=== PATIENT | male | born 1950 | race Caucasian/White ===

== ENCOUNTER 2024-12-30 20:29 | Emergency (ER) | payer OTHER, SELFPAY ==
--- NOTE | ~2024-12-30 | XR_ITS ---
CLINICAL HISTORY: R arm pain from elbow to hand RIGHT FOREARM X-RAYS COMPARISON: None. FINDINGS: A total of 2 views of the right forearm were obtained. Exam is limited due to patient positioning. No evidence of an acute fracture or dislocation within the right forearm. Elbow is difficult to accurately assess on the lateral view due to rotation. Vascular calcifications are present. No metallic foreign body. IMPRESSION: 1. No acute disease. This document has been electronically signed by: Partha eHrrera M.D. on 12/30/2024 23:02:07
[2024-12-30 21:02] VITALS: BP 148/94; PULSE 67; RESP 16; TEMP 36.1; O2SAT 96; BMI 41.6
[2024-12-30 22:29] LABS: MANUAL DIFF FLAG NO
[2024-12-30 22:39] LABS: Basophils Absolute Auto 0.1 X10*3/uL (0.0-0.2); Basophils Percent Auto 0.9 % (0-2); Eosinophils Absolute Auto 0.3 X10*3/uL (0.0-0.4); Eosinophils Percent Auto 3.4 % (0-4); Hematocrit 37.2 % (42.0-52.0); Hemoglobin 12.3 g/dl (14.0-18.0); Imm Gran Abs Auto 0.04 X10*3/uL (0.00-0.03); Imm Gran Pct Auto 0.4 % (0.0-0.4); Lymphocytes Absolute Auto 3.2 X10*3/uL (1.2-4.9); Lymphocytes Percent Auto 32.1 % (20-40); Mean Corpuscular HGB Conc 33.1 g/dl (31.0-36.0); Mean Corpuscular Hemoglobin 29.7 pg (27.0-33.0); Mean Corpuscular Volume 89.9 fL (80.0-98.0); Mean Platelet Volume 10.6 fL (9.4-12.4); Monocytes Absolute Auto 0.7 X10*3/uL (0.1-1.2); Monocytes Percent Auto 7.4 % (2-11); Neutrophils Absolute Auto 5.5 x10*3/uL (2.0-8.3); Neutrophils Percent Auto 55.8 % (45-73); Platelet Count 262 X10*3/uL (160-400); Red Blood Count 4.14 X10*6/uL (4.60-5.80); Red Cell Distribution Width 13.2 % (11.0-16.0); White Blood Count 9.9 X10*3/uL (4.8-10.8)
[2024-12-30 22:50] LABS: Alanine Aminotransferase 10 U/L (0-40); Albumin Level 4.2 g/dL (3.5-5.0); Alkaline Phosphatase 70 U/L (39-117); Anion Gap 13 (12-20); Aspartate Amino Transferase 16 U/L (5-37); Bilirubin Total 0.2 mg/dL (0.0-1.0); Blood Urea Nitrogen 18 mg/dL (9-16); Calcium 9.5 mg/dL (8.4-10.2); Carbon Dioxide 24 mmol/L (22-29); Chloride 106 mmol/L (96-108); Creatinine Clr Calc Pharmacy 63.6; Estimated Glomerular Filt Rate 58; Glucose Random 394 mg/dL (60-115); Potassium 4.4 mmol/L (3.3-5.1); Sodium 139 mmol/L (135-145); Total Protein 7.1 g/dL (6.5-8.0)
[2024-12-30 23:37] LABS: Prothrombin Time 11.4 SEC (10.9-12.4)
[2024-12-31 03:15] VITALS: BP 141/64; PULSE 68; RESP 16; TEMP 36.1; O2SAT 97
[2024-12-31] MEDS: methocarbamoL 750 MG TABLET PO (03:18)
[2024-12-31] MEDS: Ketorolac Tromethamine 15 MG/ML VIAL IM (03:18)
--- NOTE | 2024-12-31 03:43 | ED_ITS ---
HPI - Extremity Problem General Chief complaint: Extremity Injury, Upper Stated complaint: R elbow swelling, unable to move Time Seen by Provider: 12/31/24 02:58 Source: patient Limitations: no limitations History of Present Illness ED Provider: Rukhsana Bhatti PA-C HPI Narrative: 74-year-old female presents with right arm pain over the past 4 hours. Pain from the elbow to the hand, she has a reduced director of neurology strength secondary to her discomfort. Denies fall or known overuse injury. Denies redness swelling or warmth of the joint no fevers. Related Data Previous Rx's ?Medication ?Instructions ?Recorded meloxicam 15 mg tablet 15 mg PO DAILY PRN pain #7 tabs 12/31/24 methocarbamol 750 mg tablet 750 mg PO Q8H PRN pain, moderate 12/31/24 #10 tabs Allergies Allergy/AdvReac Type Severity Reaction Status Date / Time meperidine [From DEMEROL] Allergy Severe VOMITED Verified 12/30/24 21:04 BLOOD Review of Systems 2 Review of Systems: Yes all other systems are reviewed and are negative Constitutional: Constitutional: Denies fatigue and Denies fever(s) ENT: Denies neck pain Musculoskeletal: Musculoskeletal: Reports arthralgias, Denies joint swelling, Denies muscle weakness, Denies neck pain and Denies tingling Neurologic: Denies tingling Endocrine: Endocrine: Denies fatigue PMFSH Past Medical History Attestation statement: The following information was validated with the patient. Physical Exam 2 Vital Signs: Vital Signs: Last Vital Signs Temp 97.0 F 12/31/24 03:56 Pulse 68 12/31/24 03:56 Resp 16 12/31/24 03:56 BP 141/64 H 12/31/24 03:56 Pulse Ox 97 12/31/24 03:56 O2 Del Method Room Air 12/31/24 03:56 BMI result Body Mass Index 41.6 Const: Other: Alert well-appearing Orientation/consciousness: patient oriented x3 Resp: Effort & Inspection: normal respiratory effort Cardio: Other: Normal peripheral perfusion Skin: Other: Warm dry no rash Neuro: General: patient oriented x3, gait normal, no focal motor deficits and CN's II-XI intact bilaterally Extrem: Other: Pain elicited lateral elbow with resisted pronation, no overlying erythema or warmth of the joint she can flex and extend from the elbow she can also raise the arm above her head she can flex and extend from the wrist Psych: Other: Cooperative Medications Administered Discontinued Medications Generic Name Dose Route Start Last Admin Trade Name Luis PRN Reason Stop Dose Admin Ketorolac Tromethamine 15 mg 12/31/24 03:10 12/31/24 03:18 Ketorolac Tromethamine 15 Mg/Ml Vial IM 12/31/24 03:11 15 mg ONCE ONE Administration Methocarbamol 750 mg 12/31/24 03:10 12/31/24 03:18 Methocarbamol 750 Mg Tablet PO 12/31/24 03:11 750 mg ONCE ONE Administration Medical Decision Making Medical Decision Making [facility] Narrative: 74-year-old female presents with right arm pain over the past 4 hours. Pain from the elbow to the hand, she has a reduced director of neurology strength secondary to her discomfort. Denies fall or known overuse injury. Denies redness swelling or warmth of the joint no fevers. Problem: Age History: Per patient I have considered the following differential diagnoses: Fracture, dislocation, arthritis, sprain, septic joint, tennis elbow Plan: Screening labs including an x-ray obtained from triage, everything is unremarkable. Her exam was consistent with tennis elbow. We will send with home care instructions. There were no exam findings that are consistent with a septic joint. I have independently reviewed the following tests: Labs: No leukocytosis, not anemic, no electrolyte abnormalities noted X-ray right forearm:COMPARISON: None. FINDINGS: A total of 2 views of the right forearm were obtained. Exam is limited due to patient positioning. No evidence of an acute fracture or dislocation within the right forearm. Elbow is difficult to accurately assess on the lateral view due to rotation. Vascular calcifications are present. No metallic foreign body. IMPRESSION: 1. No acute disease. Lab Data 12/30/24 22:26 12/30/24 22:26 Labs: Lab Results 12/30/24 Range/Units 22:26 WBC 9.9 (4.8-10.8) X10*3/uL RBC 4.14 L (4.60-5.80) X10*6/uL Hgb 12.3 L (14.0-18.0) g/dl Hct 37.2 L (42.0-52.0) % MCV 89.9 (80.0-98.0) fL MCH 29.7 (27.0-33.0) pg MCHC 33.1 (31.0-36.0) g/dl RDW 13.2 (11.0-16.0) % Plt Count 262 (160-400) X10*3/uL MPV 10.6 (9.4-12.4) fL Immature Gran % (Auto) 0.4 (0.0-0.4) % Neut % (Auto) 55.8 (45-73) % Lymph % (Auto) 32.1 (20-40) % [place] % (Auto) 7.4 (2-11) % Eos % (Auto) 3.4 (0-4) % Baso % (Auto) 0.9 (0-2) % Lymph # (Auto) 3.2 (1.2-4.9) X10*3/uL [place] # (Auto) 0.7 (0.1-1.2) X10*3/uL Eos # (Auto) 0.3 (0.0-0.4) X10*3/uL Baso # (Auto) 0.1 (0.0-0.2) X10*3/uL Abs Immat Gran (auto) 0.04 H (0.00-0.03) X10*3/uL Absolute Neuts (auto) 5.5 (2.0-8.3) x10*3/uL Absolute Nucleated RBC 0.000 (0.0-0.012) X10*3/uL Nucleated RBC % (auto) 0.0 (0.0-0.2) /100WBC PT 11.4 (10.9-12.4) SEC INR 1.0 (0.9-1.1) Sodium 139 (135-145) mmol/L Potassium 4.4 (3.3-5.1) mmol/L Chloride 106 (96-108) mmol/L Carbon Dioxide 24 (22-29) mmol/L Anion Gap 13 (12-20) BUN 18 H (9-16) mg/dL Creatinine 1.22 (0.5-1.4) mg/dL Estim Creat Clear Calc 63.6 Estimated GFR 58 Random Glucose 394 H* (60-115) mg/dL Calcium 9.5 (8.4-10.2) mg/dL Total Bilirubin 0.2 (0.0-1.0) mg/dL AST 16 (5-37) U/L ALT 10 (0-40) U/L Alkaline Phosphatase 70 (39-117) U/L Total Protein 7.1 (6.5-8.0) g/dL Albumin 4.2 (3.5-5.0) g/dL Discharge Plan Discharge Clinical Impression: Epicondylitis, lateral, right Patient Disposition: Home, Self-Care Instructions: Tennis Elbow (ED) Additional Instructions: Your screening labs were normal, the x-ray of the elbow was negative for fracture or dislocation. Your exam was consistent with tennis elbow. See home care instructions. Use the sling as needed to support the elbow. Take the meloxicam as directed this is an anti-inflammatory take it with food. Take the methocarbamol as needed for further pain. This is a muscle relaxant it will cause drowsiness do not drive or operate machinery while taking the medication. I am providing with a contact for our orthopedic service, you may benefit from cortisone joint injection. Prescriptions: New meloxicam 15 mg tablet 15 mg PO DAILY PRN (Reason: pain) Qty: 7 0RF methocarbamol 750 mg tablet 750 mg PO Q8H PRN (Reason: pain, moderate) Qty: 10 0RF Referrals: Radames Rodriguez MD [Physician] - (tennis elbow) Interventions: ED Discharge Assessment Last Done: 12/31/24 03:56 Discharge Date/Time: 12/31/24 03:58 Print Language: Bruneian
[2024-12-31 03:56] VITALS: BP 141/64; PULSE 68; RESP 16; TEMP 36.1; O2SAT 97
== END 2024-12-31 03:58 | disposition home or self-care (01) ==
PROVIDERS: Emergency Provider Emergency Medicine Emergency Medical Services; PCP Physician Assistant Medical
DX: M77.11 Lateral epicondylitis, right elbow (principal); M79.601 Pain in right arm
CPT/HCPCS: 36415; 73090; 80053; 85025; 85610; 96372; 99284; J1885

== ENCOUNTER → 2024-12-30 21:20 | Outpatient (BNV) | payer OTHER, SELFPAY | PROVIDERS: PCP Physician Assistant Medical; Visit Provider Radiology Diagnostic Radiology | DX: M79.601 Pain in right arm (principal) | CPT/HCPCS: 73090 ==

== ENCOUNTER 2025-05-29 11:45 | Emergency (ER) | payer OTHER, SELFPAY ==
--- NOTE | ~2025-05-29 | XR_ITS ---
EXAMINATION: XR LUMBOSACRAL SPINE CLINICAL INFORMATION: lumbar back pain COMPARISON: None available. TECHNIQUE: Three views of the lumbosacral spine. FINDINGS: There is no significant scoliosis. There is a normal lordosis. Alignment appears normal without subluxation. There is no fracture, compression deformity, or suspicious bone lesion. Moderate disc degeneration identified throughout, with prominent ventral and lateral disc osteophytes at L1-2, L2-3, and L3-4. There is normal facet alignment. There are mild to moderate multilevel degenerative facet changes. The sacrum appears intact. Mild to moderate degenerative arthritis of the SI joints. There are diffuse vascular calcifications. There are cholecystectomy clips present. XR/XR lumbar spine 2-3V IMPRESSION: 1. No acute bony or soft tissue abnormality. 2. Moderate lumbar spondylosis. Electronically signed by: Lyle Hussein MD 05/29/2025 02:54 PM EDT
[2025-05-29 11:50] VITALS: BP 141/70; PULSE 74; RESP 16; TEMP 36.1; O2SAT 98; BMI 39.7
--- NOTE | 2025-05-29 12:57 | ED_ITS ---
HPI - General Adult General Chief complaint: Back Pain/Injury Stated complaint: LOWER BACK PAIN Time Seen by Provider: 05/29/25 11:54 Source: patient, RN notes reviewed and old records reviewed Mode of arrival: ambulatory Limitations: no limitations History of Present Illness ED Provider: SAJAN Padilla HPI narrative: 74-year-old male with medical history of T2DM on insulin presents to ED due to 10 days of lumbar back pain radiating down posterior R thigh. Patient states he was sitting down to put his pants on when he bent forward and felt a spasm of the musculature of his lower back. He had been taking Yaw's OTC medication which had been providing moderate relief. Patient states he woke up this morning and went to put his shoes on and noticed worsening pain in the lumbar back now. Patient stated he was concerned while driving at work because his R leg started to go numb, however, this went away after he got out of the car. Denies IVDU, saddle paresthesias, bowel or bladder incontinence, fevers, chest pain, SOB MD complaint: lumbar back pain Related Data Previous Rx's ?Medication ?Instructions ?Recorded meloxicam 15 mg tablet 15 mg PO DAILY PRN pain #7 t abs 12/31/24 methocarbamol 750 mg tablet 750 mg PO Q8H PRN pain, mo derate 12/31/24 #10 tabs cyclobenzaprine 5 mg tablet 5 mg PO BID PRN muscle spa sm #10 05/29/25 tabs prednisone 20 mg tablet 20 mg PO BID 5 days #10 tabs 05/29/25 Allergies Allergy/AdvReac Type Severity Reaction Status Date / Time meperidine (From DEMEROL) Allergy Severe VOMITED Verified 05/29/25 11:55 BLOOD Review of Systems 2 Review of Systems: CONST: Negative for fever, body aches and chills. HENT: Negative for neck pain/stiffness, headache, congestion, sore throat, swelling. EYES: Negative for discharge/pain or vision changes. RESP: Negative for cough/hemoptysis and shortness of breath. CV: Negative chest pain, difficulty breathing, palpitations. ABD: Negative pain, nausea, vomiting. : Negative increase frequency, dysuria, blood in urine or stool. MUSC: Negative for muscle aches, edema. POS lumbar back pain SKIN: Negative rash, lesions/sores. NEURO: Negative headache, dizziness, weakness. PMFSH Social History Social History Advance Directives: No Advance Directives Information Provided: No Physical Exam ED Vital Signs: Vital Signs - 24 hr 05/29/25 11:50 Temperature 97 F Pulse Rate 74 Respiratory Rate 16 Blood Pressure 141/70 H Pulse Oximetry 98 Oxygen Delivery Method Room Air BMI result Body Mass Index 39.7 GENERAL APPEARANCE: ?AxOx4, generally well-appearing, no acute distress. HEENT: ?NC, AT. MMM. EOMI, clear conjunctiva, oropharynx clear. NECK: ?Supple without lymphadenopathy.? No stiffness or restricted ROM. HEART:? Normal rate and regular rhythm, normal S1/S2, no m/r/g LUNGS:? CTAB, moving air well. No crackles or wheezes are heard. ABDOMEN: ?Soft, nontender, nondistended BACK: No CVAT, no obvious deformity. EXTREMITIES: ?Without cyanosis, clubbing or edema. B/L lumbar paraspinal TTP without midline spinal tenderness, reduced ROM due to pain, Patient unable to take a step due to pain. NEUROLOGICAL: ?Grossly nonfocal. Alert and oriented, moving all 4 extremities. Observed to ambulate with normal gait. Skin: ?Warm and dry without any rash. Medications Administered Discontinued Medications Generic Name Dose Route Start Last Admin Trade Name Freq PRN Reason Stop Dose Admin Acetaminophen 975 mg 05/29/25 13:56 05/29/25 14:08 Acetaminophen 325 Mg Tablet PO 05/29/25 13:57 975 mg ONCE ONE Administration Diazepam 5 mg 05/29/25 13:55 05/29/25 14:11 Diazepam 10 Mg/2 Ml Cartridge IM 05/29/25 13:56 5 mg STAT STA Administration Ketorolac Tromethamine 30 mg 05/29/25 13:56 05/29/25 14:09 Ketorolac Tromethamine 30 Mg/Ml Vial IM 05/29/25 13:57 30 mg ONCE ONE Administration Medical Decision Making Medical Decision Making MDM Narrative: 74-year-old male with medical history of T2DM on insulin presents to ED due to 10 days of lumbar back pain radiating down posterior R thigh. Patient states he was sitting down to put his pants on when he bent forward and felt a spasm of the musculature of his lower back. He had been taking Yaw's OTC medication which had been providing moderate relief. Patient states he woke up this morning and went to put his shoes on and noticed worsening pain in the lumbar back now. Patient stated he was concerned while driving at work because his R leg started to go numb, however, this went away after he got out of the car. Denies IVDU, saddle paresthesias, bowel or bladder incontinence VS on initial observation-BP 141/70, pulse rate is 74, respiratory rate of 16, afebrile with oral temp of 97?, O2 saturation 98% on room air. On physical exam B/L lumbar paraspinal TTP without midline spinal tenderness, reduced ROM due to pain, Patient unable to take a step due to pain. Plan: labs, XR lumbar spine - Medicated with 30mg IM toradol, 5mg IV valium, 975mg PO Tylenol Labs without leukocytosis/leukopenia, stable normocytic anemia with hemoglobin of 12.6, hematocrit of 38.4, hypomagnesemia of 1.3, hyperkalemia 5.2, random serum glucose of 153 - repleating magnesium with 2g IV mag, no indication for lokelma as hyperkalemia is very mild. 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 Patient is afebrile, without leukocytosis, no history of IVDU, no saddle paresthesias, bowel/bladder incontinence, no cancer history, less likely cauda equina, discitis, SEA. Pain has improved moderately after being medicated with 30mg IM toradol, 5mg IM valium, 975 po tylenol. Patients symptoms most likely due to lumbar radiculopathy due to degenerative changes seen of lumbar spine and of B/L SI joints. Patient will be discharged with 5 day course of flexeril, 5 days of 40mg prednisone for lumbar radiculopathy. Patient states his sugars are normally controlled and checks them by finger stick 4x a day. I counseled patient to observe for hyperglycemia while on prednisone. I counseled patient to follow up with PCP to ensure improvement of symptoms. Patient is in agreement with the plan. Differential Diagnosis Differential Diagnoses: The differential diagnosis associated with the presentation includes Cauda equina Discitis SEA Lumbar strain Lumbar radiculopathy Admission/Observation Consideration of admission/observation: Escalation of care including admission/observation considered Lab Data MDM Lab Attestation statement: I reviewed the patient's lab results. 05/29/25 14:58 05/29/25 14:58 Labs: Lab Results 05/29/25 Range/Units 14:58 WBC 9.4 (4.8-10.8) X10*3/uL RBC 4.20 L (4.60-5.80) X10*6/uL Hgb 12.6 L (14.0-18.0) g/dl Hct 38.4 L (42.0-52.0) % MCV 91.4 (80.0-98.0) fL MCH 30.0 (27.0-33.0) pg MCHC 32.8 (31.0-36.0) g/dl RDW 12.7 (11.0-16.0) % Plt Count 252 (160-400) X10*3/uL MPV 10.6 (9.4-12.4) fL Immature Gran % (Auto) 0.3 (0.0-0.4) % Neut % (Auto) 60.6 (45-73) % Lymph % (Auto) 28.0 (20-40) % [place] % (Auto) 6.4 (2-11) % Eos % (Auto) 3.7 (0-4) % Baso % (Auto) 1.0 (0-2) % Lymph # (Auto) 2.6 (1.2-4.9) X10*3/uL [place] # (Auto) 0.6 (0.1-1.2) X10*3/uL Eos # (Auto) 0.4 (0.0-0.4) X10*3/uL Baso # (Auto) 0.1 (0.0-0.2) X10*3/uL Abs Immat Gran (auto) 0.03 (0.00-0.03) X10*3/uL Absolute Neuts (auto) 5.7 (2.0-8.3) x10*3/uL Absolute Nucleated RBC 0.000 (0.0-0.012) X10*3/uL Nucleated RBC % (auto) 0.0 (0.0-0.2) /100WBC Sodium 142 (135-145) mmol/L Potassium 5.2 H (3.3-5.1) mmol/L Chloride 112 H (96-108) mmol/L Carbon Dioxide 23 (22-29) mmol/L Anion Gap 12 (12-20) BUN 19 H (9-16) mg/dL Creatinine 1.33 (0.5-1.4) mg/dL Estim Creat Clear Calc 54.9 Estimated GFR 53 Random Glucose 153 H (60-115) mg/dL Calcium 9.1 (8.4-10.2) mg/dL Magnesium 1.3 L* (1.6-2.6) mg/dL Total Bilirubin 0.2 (0.0-1.0) mg/dL AST 22 (5-37) U/L ALT 12 (0-40) U/L Alkaline Phosphatase 58 (39-117) U/L Total Protein 6.9 (6.5-8.0) g/dL Albumin 4.0 (3.5-5.0) g/dL Independent Interpretation I performed an independent interpretation of an: Plain X-Ray Radiology Impression Discussion of test interpretation with radiology: I have reviewed the radiologist's reading. Radiologist Impression: XR lumbar spine External Record Review External record reviewed: Inpatient record, Office record and Outpatient record Chronic Conditions Patient?s care impacted by: Diabetes Social Determinants Patient?s care significantly limited by Social Determinants of Health including: Other Social Determinant of Health Discharge Plan Discharge Clinical Impression: Lumbar radiculopathy Patient Disposition: Home, Self-Care Instructions: Lumbar Radiculopathy (ED) Additional Instructions: You were evaluated in the ED due to 10 days of lumbar back pain. Your blood work was significant for low magnesium level of 1.3, and stable anemia with a hemoglobin of 12.6 and hematocrit of 38.4, and slightly elevated potassium of 5.2. Your magnesium was repleted with 2 g IV magnesium while in the department. Please follow up with your primary care doctor on these findings. Your x-ray revealed osteoarthritic changes within the lumbar spine, and bilateral sacroiliac joints. You are being prescribed a 5 day course of Flexeril which is a muscle relaxer, and 5 days of 40 mg prednisone which is a steroid for anti inflammation. Please make sure you manage your glucose levels, as prednisone can elevate these while you are on this medication. For additional pain management please take 500 mg of Tylenol, 400 mg of ibuprofen every 6 hours, and use a heating pad over the affected areas. Please follow up with your primary care doctor on the findings are discussed above in this note, and to ensure your back pain is improving. Please return to the emergency department if you begin to experience numbness and tingling of the inner thighs or of the genital region, urinary or bowel incontinence, worsening back pain, chest pain, shortness of breath, or any new/worsening/concerning symptoms. Prescriptions: New cyclobenzaprine 5 mg tablet 5 mg PO BID PRN (Reason: muscle spasm) Qty: 10 0RF prednisone 20 mg tablet 20 mg PO BID 5 Days Qty: 10 0RF No Action meloxicam 15 mg tablet 15 mg PO DAILY PRN (Reason: pain) Qty: 7 0RF methocarbamol 750 mg tablet 750 mg PO Q8H PRN (Reason: pain, moderate) Qty: 10 0RF Print Language: [place]
[2025-05-29] MEDS: diazePAM 10 MG/2 ML CARTRIDGE 5 MG IM (14:11)
--- OUTSIDE RECORDS SUMMARY | 2025-05-29 14:20 | XMS_ITS | Clinical Summary ---
Author Organization [facility] Address [address] [place] [id number] Phone Care Team Providers Care Regulatory Product Manager Name Role Phone Alfredo Ojeda Primary Care Provider [phone] Allergies Active Allergy Reactions Criticality Noted Date Comments Meperidine 02/18/2020 Medications metformin HCl (METFORMIN, BULK, MISC) by Miscellaneous route. Active LISINOPRIL ORAL Take by mouth. Activ e albuterol 90 mcg/actuation inhaler Inhale 2 puffs into the lungs every 6 (six) hours as needed for wheezing. Active inhaler spacing device (AEROCHAMBER,B REATHERITE) Spcr Inhale 1 each into the lungs every 6 (six) hours as needed (wheeze/cough). 1 each 2 Active benzonatate (TESSALON) 100 MG capsule Take 1 capsule (100 mg total) by mouth 3 (three) times a day as needed for cough. 20 capsule 2 Active Social History Tobacco Use Types Packs/Day Years Used Date Smoking Tobacco: Former Smokeless Tobacco: Never Comments:quit 2019 (past 5pa cks/day) Alcohol Use Standard Drinks/Week Comments Not Currently 0 (1 standard drink = 0.6 oz pur e alcohol) Education Answer Date Recorded Are you interested in more education? Not on kev e 12/01/2022 Are you concerned about learning? Not on file 12/01/2022 No 12/01/2022 No 12/01/2022 Digital Access Answer Date Recorded No 12/30/2022 No 12/30/2022 No 12/30/2022 Reliable internet access at home? Not on file 12/30/2022 Device with a working camera? Not on file Sex and Gender Information Value Date Recorded Sex Assigned at Male 02/18/2020 9:16 AM EDT Legal Sex Male 9:07 AM EDT Gender Identity Male 02/18/2020 9:16 AM EDT Sexual Orientation Choose not to disclose 2019 9:16 AM EDT Last Filed Vital Signs Vital Sign Reading Time Taken Comments Blood Pressure 135/66 07/26/2022 4:30 PM EST Pulse 78 07/26/2022 4:04 PM EST Temperature 35.5 C (95.9 F) 07/26/2022 1:31 PM EST Respiratory Rate 18 07/26/2022 4:04 PM EST Oxygen Saturation 97% 07/26/2022 5:00 PM EST Inhaled Oxygen Concentration - - Weight 113.4 kg (250 lb) 07/26/2022 1:31 PM EST Height 175.3 cm (5' 9 ) 07/26/2022 1:31 PM EST Body Mass Index 36.92 07/26/2022 1:31 PM EST Plan of Treatment Health Maintenance Due Date Last Done Comments Adult Td,Tdap Booster 1952 LIPID PANEL 1952 DEPRESSION SCREENING 1964 SMOKING Hx and SMOKELESS TOBACCO SCREENING 1965 HEPATITIS C SCREENING 1970 COLOGUARD 1997 COLONOSCOPY 1997 COLORECTAL CANCER SCREENING 1997 FIT TEST 1997 FOBT 1997 SIGMOIDOSCOPY 1997 VIRTUAL COLONOSCOPY 1997 ZOSTER VACCINES (1 of 2) 2002 PNEUMOCOCCAL VACCINES (50+ years) (2 of 2 - PCV) 10/17/2016 10/18/2015 ABDOMINAL AORTIC ANEURYSM (AAA) SCREENING 2017 CREATININE LEVEL 07/26/2023 07/26/2022 POTASSIUM LEVEL 07/26/2023 07/26/2022 INFLUENZA VACCINE (#1) 2025 COVID-19 VACCINE (3 - 2024-2 6 season) 2025 11/06/2020, 10/09/2020 RSV VACCINE (1 - 1-dose 75+ series) 2027 HEPATITIS A VACCINES Aged Out No long er eligible based on patient's age to complete this topic HIB VACCINES Aged Out No longer eligi ble based on patient's age to complete this topic MENINGOCOCCAL VACCINES (ACWY) Aged Out No longer eligible based on patient's age to complete this topic MENINGOCOCCAL VACCINES (B) Aged Out N o longer eligible based on patient's age to complete this topic Medical Devices Not on file Procedures Procedure Name Priority Date/Time Associated Diagnosis Comments BASIC METABOLIC PANEL STAT 07/26/2022 3:27 PM EST from Last 3 Months or Most Recently Relevant to Health Maintenance Results * (ABNORMAL) Basic metabolic panel (07/26/2022 3:27 PM EST) SODIUM 145 133 - 146 mmol/L [facility] CHLORIDE 109(H) 96 - 108 mmol/L [facility] POTASSIUM 4.5 3.3 - 5.1 mmol/L [facility] CO2 22 21 - 35 mmol/L [facility] BUN 29(H) 6 - 19 mg/dL [facility] CREATININE 1.70(H) 0.5 - 1.5 mg/dL [facility] GLUCOSE 82 70 - 99 mg/dL [facility] CALCIUM 10.2 8.4 - 10.3 mg/dL [facility] EGFR 43(L) >59 mL/min/1.7 3m2 [facility] Comment:Estimated glomerular filtration rate calculated using the CKD-EPI refit equation. ANION GAP 19 10 - 20 mmol/L [facility] Blood 07/26/2022 3:27 PM EST 07/26/2022 3:37 PM EST us Emerson Cristina PA-C LAB BLOOD ORDERABLES Final Re sult [facility] [address] [place] [address] from Last 3 Months or Most Recently Relevant to Health Maintenance Insurance MEDICARE PART A & B MEDICARE PART A & B MEDICARE PART A & B [id number] [place] [address] MEDICARE PART A & B [facility] MEDICARE PART A & B MEDICARE PART A & B MEDICARE PART A & B [id number] [place] [address] [address] PART A [address] [place] [address] [address] [place] [address] MEDICARE PART A & B Member Subscriber Plan / Payer (Ef fective 2011-Present) Name:Kami Triana Member ID:[id number] Relation to Subscriber:Self Name:Kami Triana Subscriber ID:[id number] Payer ID:[id number] Group ID:Not on file Type:Medicare Address: [facility] [employer] [address] [place] [address] MEDICARE PART A & B Care Teams Regulatory Product Manager Relationship Specialty Start Date End Date Alfredo Ojeda PA [address] [place] [id number] PCP - General 07/26/22 Additional Source Comments The information contained in this document represents components of the legal health record. It is not the complete legal health record.[facility]
[2025-05-29 15:02] LABS: MANUAL DIFF FLAG NO
[2025-05-29 15:05] LABS: Hematocrit 38.4 % (42.0-52.0); Hemoglobin 12.6 g/dl (14.0-18.0); Imm Gran Abs Auto 0.03 X10*3/uL (0.00-0.03); Imm Gran Pct Auto 0.3 % (0.0-0.4); Lymphocytes Absolute Auto 2.6 X10*3/uL (1.2-4.9); Mean Corpuscular HGB Conc 32.8 g/dl (31.0-36.0); Mean Corpuscular Hemoglobin 30.0 pg (27.0-33.0); Mean Corpuscular Volume 91.4 fL (80.0-98.0); NRBC Abs Auto 0.000 X10*3/uL (0.0-0.012); NRBC Pct Auto 0.0 /100WBC (0.0-0.2); Platelet Count 252 X10*3/uL (160-400); Red Blood Count 4.20 X10*6/uL (4.60-5.80); White Blood Count 9.4 X10*3/uL (4.8-10.8)
[2025-05-29 15:31] LABS: Alanine Aminotransferase 12 U/L (0-40); Albumin Level 4.0 g/dL (3.5-5.0); Alkaline Phosphatase 58 U/L (39-117); Anion Gap 12 (12-20); Aspartate Amino Transferase 22 U/L (5-37); Blood Urea Nitrogen 19 mg/dL (9-16); Calcium 9.1 mg/dL (8.4-10.2); Carbon Dioxide 23 mmol/L (22-29); Chloride 112 mmol/L (96-108); Creatinine Clr Calc Pharmacy 54.9; Estimated Glomerular Filt Rate 53; Magnesium 1.3 mg/dL (1.6-2.6); Potassium 5.2 mmol/L (3.3-5.1); Sodium 142 mmol/L (135-145); Total Protein 6.9 g/dL (6.5-8.0)
[2025-05-29] MEDS: Magnesium Sulfate/H2O 2 GM/50 ML PIGGYBACK IV (15:55)
[2025-05-29 16:37] VITALS: BP 144/74; PULSE 64; RESP 18; TEMP 36.2; O2SAT 97
[2025-05-29 16:42] VITALS: BP 144/74; PULSE 64; RESP 18; TEMP 36.2; O2SAT 97
== END 2025-05-29 16:44 | disposition home or self-care (01) ==
PROVIDERS: Emergency Provider Emergency Medicine; PCP Physician Assistant Medical
DX: M54.16 Radiculopathy, lumbar region (principal); E11.9 Type 2 diabetes mellitus without complications; Z79.4 Long term (current) use of insulin; M47.816 Spondylosis without myelopathy or radiculopathy, lumbar region
CPT/HCPCS: 36415; 72100; 80053; 83735; 85025; 96365; 96372; 99283; 99284; J1885; J3360; J3475

== ENCOUNTER → 2025-05-29 13:56 | Outpatient (BNV) | payer OTHER, SELFPAY | PROVIDERS: Emergency Provider Emergency Medicine; PCP Physician Assistant Medical; Visit Provider Radiology Diagnostic Radiology | DX: M47.816 Spondylosis without myelopathy or radiculopathy, lumbar region (principal) | CPT/HCPCS: 72100 ==